=== PATIENT | male | born 1980 | race African-American/Black ===

== ENCOUNTER 2020-10-07 09:11 | Emergency (ER) | payer OTHER ==
[~2020-10-07] VITALS: Ht 170.2 cm; Wt 63.5 kg
[2020-10-07 09:17] VITALS: BP 133/73
--- NOTE | 2020-10-07 09:56 | NUR ---
Patient discharged to home in stable condition. Written and verbal after care instructions given. Patient verbalizes understanding of instruction.
== END 2020-10-07 09:56 ==
LOC: ER 09:15
DX: Z02.89 Encounter for other administrative examinations (principal); F12.90 Cannabis use, unspecified, uncomplicated